=== PATIENT | female | born 1980 | race Caucasian/White ===

== ENCOUNTER → 2017-01-07 | Outpatient (CLI) | payer BC ==
[~2017-01-07] MED LIST: ACET50TA PO; ANUS2.5C2 TOP; DOCU10ELUD PO; IBUP600T26 PO; LABE300T PO; MOM30SS PO; OMEP40CA2 PO; PRENTAB9 PO
[2017-01-07 14:13] LABS: BASO % 0.6 % (0.0-1.0); EOS # 0.1 K/mm3 (0.0-0.50); LARGE UNSTAINED CELL # 0.1 K/mm3 (0.0-0.4); LARGE UNSTAINED CELL % 2.3 % (0.0-4.0); LYMPH # 1.5 K/mm3 (1.5-4.5); LYMPH % 33.9 % (24.0-44.0); MEAN CORPUSCULAR HEMOGLOBIN 31.1 pg (27.0-33.0); MEAN CORPUSCULAR HGB CONC 34.7 g/dl (32.0-36.5); MEAN CORPUSCULAR VOLUME 89.6 fl (80.0-96.0); MONO # 0.3 K/mm3 (0.0-0.8); NEUTROPHILS # 2.4 K/mm3 (1.8-7.7); NEUTROPHILS % 54.1 % (36.0-66.0); PLATELET COUNT, AUTOMATED 342 k/mm3 (150-450); RED CELL DISTRIBUTION WIDTH 12.7 % (11.5-14.5); WHITE BLOOD COUNT 4.4 K/mm3 (4.0-10.0)
[2017-01-07 14:26] LABS: ALBUMIN/GLOBULIN RATIO 1.48 (1.00-1.93); ALKALINE PHOSPHATASE 55 U/L (45-117); ALT/SGPT 18 U/L (12-78); ANION GAP 7 MEQ/L (8-16); AST/SGOT 9 U/L (15-37); BILIRUBIN,TOTAL 0.5 MG/DL (0.2-1.0); BLOOD UREA NITROGEN 11 MG/DL (7-18); CALCIUM LEVEL 8.7 MG/DL (8.5-10.1); CARBON DIOXIDE LEVEL 28 MEQ/L (21-32); CHLORIDE LEVEL 109 MEQ/L (98-107); CHOLESTEROL LEVEL 207 MG/DL (<200); CREATININE FOR GFR 0.75 MG/DL (0.55-1.02); FREE T4 1.03 NG/DL (0.76-1.46); GLOMERULAR FILTRATION RATE > 60.0 (>60); GLUCOSE, FASTING 90 MG/DL (70-105); MAGNESIUM LEVEL 2.3 MG/DL (1.8-2.4); POTASSIUM SERUM 4.6 MEQ/L (3.5-5.1); SODIUM LEVEL 144 MEQ/L (136-145); TOTAL PROTEIN 6.7 GM/DL (6.4-8.2); TRIGLYCERIDES LEVEL 74 MG/DL (<150)
== END ==
LOC: M WUC 09:05
PROVIDERS: ATTEND Nurse Practitioner Family
DX: K21.9 Gastro-esophageal reflux disease without esophagitis (principal); R63.5 Abnormal weight gain; Z13.220 Encounter for screening for lipoid disorders; R25.2 Cramp and spasm; F32.9 Major depressive disorder, single episode, unspecified

== ENCOUNTER → 2018-10-26 | Outpatient (REF) | payer OTHER ==
[~2018-10-26] MED LIST changes: -ACET50TA PO; -DOCU10ELUD PO; +DOCU5LIQ PO; +MAPA500T17 PO
[2018-10-26 13:26] LABS: HEMOGLOBIN A1c 5.5 %
[2018-10-26 14:00] LABS: CHOLESTEROL RISK RATIO 2.597 (<5)
== END ==
LOC: M SFHCPLAZ 08:42
PROVIDERS: ATTEND Family Medicine
DX: Z13.1 Encounter for screening for diabetes mellitus (principal); Z13.220 Encounter for screening for lipoid disorders

== ENCOUNTER 2018-12-17 08:05 | Outpatient (RCR) | payer OTHER | END 2018-12-18 | LOC: M PT 08:05 | PROVIDERS: ATTEND Student in an Organized Health Care Education/Training Program | DX: Z51.89 Encounter for other specified aftercare (principal); M25.551 Pain in right hip ==

== ENCOUNTER 2018-12-28 15:10 | Outpatient (RCR) | payer OTHER | END 2019-01-17 | LOC: M PT 15:10 | PROVIDERS: ATTEND Student in an Organized Health Care Education/Training Program | DX: Z51.89 Encounter for other specified aftercare (principal); M25.551 Pain in right hip ==

== ENCOUNTER → 2019-02-23 | Outpatient (CLI) | payer OTHER ==
--- NOTE | 2019-02-23 09:05 | REP ---
MRI LEFT SHOULDER WITHOUT CONTRAST: HISTORY: Impingement syndrome. Rule out rotator cuff tear. Pain and numbness. No comparison radiographs. TECHNIQUE: Axial, oblique coronal, and oblique sagittal imaging planes utilized. T1- and T2-weighted scans were obtained in the usual fashion with and without fat saturation. MRI FINDINGS: There is a 6 mm bone island in the humeral head subcortical region. This is not felt to be significant. There is minimal marrow edema on either side of the AC joint. There is mild hypertrophy at the AC joint superiorly. These changes are compatible with early osteoarthritis of the acromioclavicular joint. Cortical and medullary bone signal intensity are otherwise normal. There is a tiny sliver of subacromial subdeltoid bursal fluid. There is tendonitis/tendinosis change in the distal supraspinatus tendon on oblique coronal T1-weighted scans manifest by increased signal intensity and slight thickening. No focal cuff tear is appreciated on T2-weighted scans. The infraspinatus and subscapularis tendons have an intact appearance. There is some increased signal intensity diffusely in the subscapularis tendon consistent with tendinosis. No focal T2 defect. Anterior posterior cartilaginous labral structures appear intact. Biceps tendon is in the bony bicipital groove and has a normal appearance. No superior labral disruption is seen. No articular cartilage lesion is seen. IMPRESSION: Tendonitis tendinosis change in the supraspinatus and subscapularis tendons. Small sliver of subacromial bursal fluid. Early osteoarthritic change at the AC joint. No evidence of rotator cuff tear. Electronically Signed by Neftali Ahumada MD 02/23/2019 10:22 A
--- NOTE | 2019-02-23 09:13 | REP ---
MRI cervical spine: 02/23/2019. Indication: Neck pain. Comparison: None. Technique: Multiplanar short and long TR sequences of the cervical spine were obtained without IV Gadolinium. Findings: There is straightening of the cervical lordosis. No worrisome marrow signal is present. The visualized cord is normal. The craniocervical junction is unremarkable. The vertebral artery flow voids are unremarkable as well. C2/C3: Unremarkable. C3/C4 and C4/C5: Mild diffuse disc bulges are present with minimal effacement of the ventral thecal sac at each level. The neural foramina are patent. C5/C6: There is an asymmetric disc bulge more apparent on the left with left-sided uncovertebral proliferation resulting in moderate left neural foraminal narrowing. There is effacement of the ventral thecal sac. C6/C7 and C7/T1: There is no focal disc herniation or significant spinal canal / neural foraminal narrowing. Impression: Degenerative sequelae of the cervical spine as described most pronounced on the left at C5/C6. Electronically Signed by Pj Sher DO 02/23/2019 09:04 A
== END ==
LOC: M RAD 06:25
PROVIDERS: ATTEND Physician Assistant
DX: M50.322 Other cervical disc degeneration at C5-C6 level (principal); M75.42 Impingement syndrome of left shoulder

== ENCOUNTER → 2019-12-02 | Outpatient (CLI) | payer OTHER ==
--- NOTE | 2020-01-10 11:14 | REP ---
LUMBAR SPINE SERIES: 5-VIEWS HISTORY: Back pain. FINDINGS: An IUD is noted in place in the true pelvis. The lumbar vertebral body heights are preserved. Alignment is normal. The pedicles and posterior elements are intact. There is no evidence of spondylolysis or spondylolisthesis. There is mild discogenic spurring at L3-4. Disc spaces are preserved. The psoas margins are symmetric. The sacrum and SI joints are unremarkable. IMPRESSION: Minimal degenerative disc changes at L3-4. IUD noted in place. Otherwise negative lumbar spine radiographs. MTDD
== END ==
LOC: M WUC 02:47
PROVIDERS: ATTEND Student in an Organized Health Care Education/Training Program
DX: M54.5 Low back pain (principal)

== ENCOUNTER → 2019-12-05 | Outpatient (REF) | payer OTHER | LOC: M LAB REF 08:00 | PROVIDERS: ATTEND Student in an Organized Health Care Education/Training Program | DX: L85.9 Epidermal thickening, unspecified (principal) ==

== ENCOUNTER → 2020-12-10 | Outpatient (CLI) | payer OTHER ==
[2020-12-10 10:06] LABS: BASO % 0.6 % (0.0-1.0); EOS # 0.2 10^3/uL (0.0-0.5); EOS % 4.1 % (0.0-3.0); HEMOGLOBIN 14.3 g/dl (12.0-15.5); LYMPH # 1.9 10^3/uL (1.5-5.0); LYMPH % 35.4 % (24.0-44.0); MEAN CORPUSCULAR HEMOGLOBIN 30.1 pg (27.0-33.0); MEAN CORPUSCULAR HGB CONC 33.3 g/dl (32.0-36.5); MEAN CORPUSCULAR VOLUME 90.5 fl (80.0-96.0); MONO # 0.6 10^3/uL (0.0-0.8); MONO % 10.4 % (2.0-8.0); NEUTROPHILS # 2.6 10^3/uL (1.5-8.5); NEUTROPHILS % 49.1 % (36.0-66.0); PLATELET COUNT, AUTOMATED 285 10^3/uL (150-450); RED BLOOD COUNT 4.75 10^6/uL (4.00-5.40); WHITE BLOOD COUNT 5.3 10^3/uL (4.0-10.0)
[2020-12-10 10:39] LABS: ALBUMIN 3.6 GM/DL (3.2-5.2); ALT/SGPT 23 U/L (12-78); BILIRUBIN,TOTAL 0.5 MG/DL (0.2-1.0); BLOOD UREA NITROGEN 10 MG/DL (7-18); CALCIUM LEVEL 8.2 MG/DL (8.5-10.1); CARBON DIOXIDE LEVEL 27 MEQ/L (21-32); CHLORIDE LEVEL 109 MEQ/L (98-107); CHOLESTEROL LEVEL 175 MG/DL (<200); CHOLESTEROL RISK RATIO 2.734 (<5); CREATININE FOR GFR 0.75 MG/DL (0.55-1.30); GLOMERULAR FILTRATION RATE > 60.0 (>58); GLUCOSE, FASTING 94 MG/DL (70-100); HDL CHOLESTEROL 64 MG/DL (>40); LDL CHOLESTEROL 96 MG/DL (<100); NON-HDL-C 111 MG/DL; POTASSIUM SERUM 4.1 MEQ/L (3.5-5.1); SODIUM LEVEL 140 MEQ/L (136-145); TOTAL PROTEIN 6.2 GM/DL (6.4-8.2); TRIGLYCERIDES LEVEL 73 MG/DL (<150)
== END ==
LOC: M WUC 08:24
PROVIDERS: ATTEND Student in an Organized Health Care Education/Training Program
DX: Z13.1 Encounter for screening for diabetes mellitus (principal); Z13.220 Encounter for screening for lipoid disorders

== ENCOUNTER → 2021-07-03 | Outpatient (CLI) | payer OTHER | LOC: M RAD 16:31 | PROVIDERS: ATTEND Otolaryngology | DX: J32.0 Chronic maxillary sinusitis (principal) ==

== ENCOUNTER → 2021-12-21 | Outpatient (CLI) | payer OTHER ==
[2021-12-21 09:39] LABS: BASO % 0.7 % (0.0-1.0); EOS # 0.2 10^3/uL (0.0-0.5); EOS % 3.9 % (0.0-3.0); HEMATOCRIT 44.3 % (36.0-47.0); LYMPH # 1.6 10^3/uL (1.5-5.0); LYMPH % 36.9 % (24.0-44.0); MEAN CORPUSCULAR HEMOGLOBIN 30.3 pg (27.0-33.0); MEAN CORPUSCULAR HGB CONC 33.9 g/dl (32.0-36.5); MEAN CORPUSCULAR VOLUME 89.5 fl (80.0-96.0); MONO # 0.5 10^3/uL (0.0-0.8); MONO % 11.8 % (2.0-8.0); NEUTROPHILS % 46.2 % (36.0-66.0); PLATELET COUNT, AUTOMATED 329 10^3/uL (150-450); RED BLOOD COUNT 4.95 10^6/uL (4.00-5.40); WHITE BLOOD COUNT 4.4 10^3/uL (4.0-10.0)
[2021-12-21 10:10] LABS: ALBUMIN 3.7 GM/DL (3.2-5.2); ALT/SGPT 37 U/L (12-78); BILIRUBIN,TOTAL 0.8 MG/DL (0.2-1.0); BLOOD UREA NITROGEN 12 MG/DL (7-18); CALCIUM LEVEL 8.9 MG/DL (8.5-10.1); CARBON DIOXIDE LEVEL 30 MEQ/L (21-32); CHLORIDE LEVEL 107 MEQ/L (98-107); CHOLESTEROL LEVEL 181 MG/DL (<200); CHOLESTEROL RISK RATIO 2.967 (<5); CREATININE FOR GFR 0.76 MG/DL (0.55-1.30); GLOMERULAR FILTRATION RATE > 60.0 (>58); GLUCOSE, FASTING 90 MG/DL (70-100); HDL CHOLESTEROL 61 MG/DL (>40); LDL CHOLESTEROL 104 MG/DL (<100); NON-HDL-C 120 MG/DL; POTASSIUM SERUM 4.4 MEQ/L (3.5-5.1); SODIUM LEVEL 140 MEQ/L (136-145); TOTAL PROTEIN 6.6 GM/DL (6.4-8.2); TRIGLYCERIDES LEVEL 78 MG/DL (<150)
== END ==
LOC: M LAB 09:08
PROVIDERS: ATTEND Student in an Organized Health Care Education/Training Program
DX: Z00.00 Encounter for general adult medical examination without abnormal findings (principal)

== ENCOUNTER → 2022-01-17 | Outpatient (CLI) | payer OTHER ==
[~2022-01-17] MED LIST changes: +ISOVUE-300 61% 50ML VIAL As Ordered ONE; +LIDOCAINE 1% MDV 20ML VIAL As Ordered ONE; +PROHANCE 279.3MG/ML 5ML VIAL As Ordered ONE
== END ==
LOC: M RADPRO 06:46
PROVIDERS: ATTEND Physician Assistant Surgical
DX: S76.011A Strain of muscle, fascia and tendon of right hip, initial encounter (principal); X58.XXXA Exposure to other specified factors, initial encounter; Y92.9 Unspecified place or not applicable
CPT/HCPCS: 27093; 73723; 77002; A9576; Q9967

== ENCOUNTER → 2022-02-10 | Outpatient (CLI) | payer OTHER ==
[~2022-02-10] MED LIST changes: -ISOVUE-300 61% 50ML VIAL As Ordered ONE; +ISOVUE-300 61% 50ML VIAL ONE; -LIDOCAINE 1% MDV 20ML VIAL As Ordered ONE; +LIDOCAINE 1% MDV 20ML VIAL ONE; -PROHANCE 279.3MG/ML 5ML VIAL As Ordered ONE; +methylPREDNISolone 80MG/ML SUSP 1ML VIAL (J1040) ONE; +methylPREDNISolone SUSP 40MG/ML 1ML VIAL (DEPO MEDROL) ONE
== END ==
LOC: M PLAIMG 15:07
PROVIDERS: ATTEND Physician Assistant Surgical
DX: S73.111A Iliofemoral ligament sprain of right hip, initial encounter (principal); M24.151 Other articular cartilage disorders, right hip; S76.011D Strain of muscle, fascia and tendon of right hip, subsequent encounter
CPT/HCPCS: 76000; J1030; Q9967

== ENCOUNTER → 2022-06-05 | Outpatient (CLI) | payer OTHER ==
[~2022-06-05] MED LIST changes: +ISOVUE-300 61% 100ML VIAL As Ordered ONE; -ISOVUE-300 61% 50ML VIAL ONE; +LIDOCAINE 1% MDV 20ML VIAL As Ordered ONE; -LIDOCAINE 1% MDV 20ML VIAL ONE; -methylPREDNISolone 80MG/ML SUSP 1ML VIAL (J1040) ONE; +methylPREDNISolone SUSP 40MG/ML 1ML VIAL (DEPO MEDROL) As Ordered ONE; -methylPREDNISolone SUSP 40MG/ML 1ML VIAL (DEPO MEDROL) ONE
== END ==
LOC: M RAD 12:17
PROVIDERS: ATTEND Physician Assistant Surgical
DX: S73.11 Iliofemoral ligament sprain of hip (principal); M24.151 Other articular cartilage disorders, right hip
CPT/HCPCS: 20610; 76000; J1030

== ENCOUNTER → 2023-07-10 | Outpatient (CLI) | payer OTHER ==
[~2023-07-10] MED LIST changes: -ISOVUE-300 61% 100ML VIAL As Ordered ONE; -LIDOCAINE 1% MDV 20ML VIAL As Ordered ONE; -methylPREDNISolone SUSP 40MG/ML 1ML VIAL (DEPO MEDROL) As Ordered ONE
[2023-07-10 13:43] LABS: BASO # 0.1 10^3/uL (0.0-0.2); BASO % 0.8 % (0.0-1.0); EOS # 0.1 10^3/uL (0.0-0.5); EOS % 1.5 % (0.0-3.0); HEMATOCRIT 47.2 % (36.0-47.0); HEMOGLOBIN 15.6 g/dl (12.0-15.5); LYMPH % 34.2 % (24.0-44.0); MEAN CORPUSCULAR HEMOGLOBIN 29.8 pg (27.0-33.0); MEAN CORPUSCULAR HGB CONC 33.1 g/dl (32.0-36.5); MEAN CORPUSCULAR VOLUME 90.1 fl (80.0-96.0); MONO # 0.4 10^3/uL (0.0-0.8); MONO % 6.6 % (2.0-8.0); NEUTROPHILS # 3.4 10^3/uL (1.5-8.5); NEUTROPHILS % 56.7 % (36.0-66.0); PLATELET COUNT, AUTOMATED 305 10^3/uL (150-450); RED BLOOD COUNT 5.24 10^6/uL (4.00-5.40); WHITE BLOOD COUNT 5.9 10^3/uL (4.0-10.0)
[2023-07-10 13:46] LABS: HEMOGLOBIN A1c 5.1 % (4.0-6.0)
[2023-07-10 14:19] LABS: ALBUMIN 4.5 G/DL (3.2-5.2); ALKALINE PHOSPHATASE 53 U/L (46-116); ALT/SGPT 18 U/L (7.0-40); AST/SGOT 13 U/L (<34); BILIRUBIN,TOTAL 0.8 MG/DL (0.3-1.2); BLOOD UREA NITROGEN 15 MG/DL (9-23); CALCIUM LEVEL 9.5 MG/DL (8.5-10.1); CARBON DIOXIDE LEVEL 28 MMOL/L (20-31); CHLORIDE LEVEL 105 MMOL/L (98-107); CHOLESTEROL LEVEL 214 MG/DL (<200); CHOLESTEROL RISK RATIO 3.15 (<5); GLOMERULAR FILTRATION RATE > 60.0 (>58); GLUCOSE, FASTING 83 MG/DL (60-100); HDL CHOLESTEROL 67.8 MG/DL (>40); LDL CHOLESTEROL 132.6 MG/DL (<100); NON-HDL-C 146.2 MG/DL; SODIUM LEVEL 136 MMOL/L (136-145); THYROID STIMULATING HORMONE 1.261 uIU/ML (0.55-4.78); TRIGLYCERIDES LEVEL 68 MG/DL (<150)
== END ==
LOC: M WUC 12:03
PROVIDERS: ATTEND Family Medicine
DX: E66.3 Overweight (principal)

== ENCOUNTER → 2024-11-11 | Outpatient (CLI) | payer OTHER ==
[2024-11-11 12:27] LABS: BASO # 0.1 10^3/uL (0.0-0.2); BASO % 0.7 % (0.0-1.0); EOS # 0.2 10^3/uL (0.0-0.5); EOS % 2.2 % (0.0-3.0); LYMPH # 2.0 10^3/uL (1.5-5.0); LYMPH % 29.5 % (24.0-44.0); MONO # 0.8 10^3/uL (0.0-0.8); MONO % 10.9 % (2.0-8.0); NEUTROPHILS # 3.9 10^3/uL (1.5-8.5); NEUTROPHILS % 56.4 % (36.0-66.0); PLATELET COUNT, AUTOMATED 385 10^3/uL (150-450)
[2024-11-11 12:32] LABS: ALT/SGPT 12 U/L (7.0-40); AST/SGOT 15 U/L (<34); CALCIUM LEVEL 9.0 MG/DL (8.5-10.1); CARBON DIOXIDE LEVEL 26 MMOL/L (20-31); CHLORIDE LEVEL 105 MMOL/L (98-107); CHOLESTEROL LEVEL 175 MG/DL (<200); CHOLESTEROL RISK RATIO 3.08 (<5); CREATININE FOR GFR 0.77 MG/DL (0.55-1.30); GLOMERULAR FILTRATION RATE > 90.0 (>58); LDL CHOLESTEROL 105.0 MG/DL (<100); NON-HDL-C 118.2 MG/DL; POTASSIUM SERUM 4.4 MMOL/L (3.5-5.1); SODIUM LEVEL 141 MMOL/L (136-145); TRIGLYCERIDES LEVEL 66 MG/DL (<150)
[2024-11-11 13:16] LABS: ESTIMATED AVERAGE GLUCOSE 97.0 MG/DL (60-110)
== END ==
LOC: M WUC 08:29
PROVIDERS: ATTEND Family Medicine
DX: Z00.00 Encounter for general adult medical examination without abnormal findings (principal)

== ENCOUNTER → 2025-02-24 | Outpatient (CLI) | payer OTHER ==
[2025-02-24 14:51] LABS: BASO # 0.1 10^3/uL (0.0-0.2); BASO % 1.2 % (0.0-1.0); EOS # 0.1 10^3/uL (0.0-0.5); EOS % 2.1 % (0.0-3.0); LYMPH # 2.1 10^3/uL (1.5-5.0); LYMPH % 40.3 % (24.0-44.0); MONO # 0.5 10^3/uL (0.0-0.8); MONO % 9.1 % (2.0-8.0); NEUTROPHILS # 2.4 10^3/uL (1.5-8.5); NEUTROPHILS % 46.9 % (36.0-66.0); PLATELET COUNT, AUTOMATED 390 10^3/uL (150-450)
[2025-02-24 14:53] LABS: ALT/SGPT 18 U/L (7.0-40); AST/SGOT 21 U/L (<34); CALCIUM LEVEL 8.8 MG/DL (8.5-10.1); CARBON DIOXIDE LEVEL 28 MMOL/L (20-31); CHLORIDE LEVEL 105 MMOL/L (98-107); CREATININE FOR GFR 0.71 MG/DL (0.55-1.30); GLOMERULAR FILTRATION RATE > 90.0 (>58); POTASSIUM SERUM 4.4 MMOL/L (3.5-5.1); SODIUM LEVEL 142 MMOL/L (136-145)
== END ==
LOC: M WUC 11:16
PROVIDERS: ATTEND Family Medicine
DX: R55 Syncope and collapse (principal)